=== PATIENT | male | born 1960 | race Hispanic/Latino ===

== ENCOUNTER 2022-02-16 08:19 | Outpatient (CLI) | payer OTHER | END 2022-02-16 08:20 | disposition home or self-care (01) | LOC: MRI 08:19 | PROVIDERS: ATTEND Internal Medicine | DX: M54.50 Low back pain, unspecified (principal); M48.061 Spinal stenosis, lumbar region without neurogenic claudication; M51.86 Other intervertebral disc disorders, lumbar region | CPT/HCPCS: 72148 ==

== ENCOUNTER 2024-04-25 14:22 | Outpatient (CLI) | payer OTHER | END 2024-04-25 14:23 | disposition home or self-care (01) | LOC: BICRAD 14:22 | PROVIDERS: ATTEND Nurse Practitioner | DX: Z02.71 Encounter for disability determination (principal) ==